=== PATIENT | male | born 1945 | race Caucasian/White ===

== ENCOUNTER 2020-02-03 11:27 | Emergency (ER) | payer OTHER, MEDICARE, SELFPAY ==
[2020-02-03 11:28] VITALS: BP 158/85; PULSE 62; RESP 18; TEMP 35.8; O2SAT 97; BMI 29.6
--- NOTE | 2020-02-03 11:56 | CT_ITS ---
STUDY: CT ABDOMEN AND PELVIS WITH CONTRAST REASON FOR EXAM: Male, 74 years old. DIFFUSE ABD PAIN X3 DAYS RADIATION DOSAGE (If Supplied By Facility): CTDIvol = ( 16.92 ) mGy, DLP = ( 1027.57 ) mGycm TECHNIQUE: Transaxial images were obtained from the dome of the diaphragm to the symphysis pubis with oral contrast. Oral and amp; IV Gastrografin and amp; 100mL Isovue-300 was administered. Sagittal and coronal images were reconstructed. Individualized dose optimization techniques were used for this CT. COMPARISON: None. FINDINGS: The visualized lung bases are unremarkable. The visualized portions of the heart are within normal limits. Normal liver. Normal gallbladder and extrahepatic biliary system. Normal spleen. Normal pancreas. Normal bilateral adrenal glands. Normal right kidney. Normal left kidney. Diffuse nonspecific increased markings in the root of the mesentery. There is a small hiatal hernia. Normal small intestine. There are multiple colonic diverticula consistent with diverticulosis. The appendix is visualized and appears normal. There is diffuse atherosclerotic calcification of the abdominal aorta, without a demonstrated aneurysm. Normal inferior vena cava. There is borderline retroperitoneal lymphadenopathy with enlarged nodes no greater than 10mm in the short axis diameter. Normal urinary bladder. There is enlargement of the prostate gland. This causes indentation at the bladder base. It measures 4.3 cm x 4.7 cm. Central prostatic calcifications are seen. There is a small umbilical hernia containing fat. Small bilateral inguinal hernias containing fat. There are diffuse degenerative changes of the visualized lumbar spine. Straightening of the normal lumbar lordosis. CT/Abdomen/Pelvis WITH Contrast IMPRESSION: Nonspecific increased markings in the root of the mesenteric fat. Prostatic enlargement with indentation at the bladder base. Scattered sigmoid diverticula. Electronically Signed: William Santizo, at 14:15 EST , Service support ,
--- NOTE | 2020-02-03 11:57 | ED.DCSUM_ITS ---
History of Present Illness Chief Complaint: Abd Pain Informant: Patient Narrative: 74-year-old male presents to the emergency department for the evaluation abdominal pain. Symptoms began Saturday evening. Describes it as a generalized ache but becomes more localized when he arches his back and then he can feel it more on the right and left sides of his abdomen. He denies really any other symptoms. He has had a ventral hernia which he states has been present for years. It is reducible. He has been eating and drinking normally. No fevers. He is never had any prior abdominal surgeries. He states that he has had a backache for months. He states he is followed for a abdominal aortic aneurysm but believes the size is only 2 cm. Past Medical History - Allergies and Home Meds Allergies/Adverse Reactions: Allergies acetaminophen [From Wygesic] Allergy (Verified 02/03/20 11:30) Unknown propoxyphene HCl [From Wygesic] Allergy (Verified 02/03/20 11:30) Unknown Primary Care Physician: [facility] [Primary Care Provider] - As Needed Past Medical History: - - AAA Surgical History: noncontributory Smoking Status: Former smoker Drugs: None Review of Systems General: Denies: Chills, Fever, Sweats Eyes: Denies: Visual changes - bilaterally, Diplopia ENT: Denies: Rhinorrhea, Sore throat Cardiovascular: Denies: Chest pain, Palpitations Respiratory: Denies: Dyspnea, Cough, Dyspnea on exertion Gastrointestinal: Reports: Abdominal pain. Denies: Nausea, Vomiting, Diarrhea, Melena, Hematochezia Genitourinary: Denies: Dysuria, Hematuria, Frequency Musculoskeletal: Denies: Back pain, Extremity Pain Skin: Denies: Rash, Wounds Neurological: Denies: Headache, Weakness, Numbness Physical Exam Vital Signs/Narrative: Vital Signs Temp Pulse Resp BP Pulse Ox 02/03/20 11:28 96.5 F L 62 18 158/85 H 97 Inital Vital Signs reviewed: Yes General: Well nourished, Well developed, No Acute Distress Head: Normocephalic, Atraumatic Eyes: Perrl, EOMI ENT: Moist mucous membranes, No rhinorrhea Neck: Supple, Nontender Cardiovascular: Regular rate, Regular rhythm, No murmurs Respiratory: No distress, CTA bilaterally, Chest nontender Abdomen: Soft, Nontender, Nondistended, Normal bowel sounds, Ventral hernia, Hernia irreducible Back: Nontender, Normal Inspection Extremities: Nontender, No edema Skin: Normal color, No rash Neurological: Alert, Oriented x3, Cranial nerves II-XII grossly intact, Normal Strength, Normal Sensation Psychological: Normal affect, Normal Mood Diagnostic/Tx/Re-eval Clinical Impression(s) from Imaging Studies Abdomen/Pelvis CT 02/03/20 11:56 IMPRESSION: Nonspecific increased markings in the root of the mesenteric fat. Prostatic enlargement with indentation at the bladder base. Scattered sigmoid diverticula. Electronically Signed: William Sukhdev, at 14:15 EST , Service support , Laboratory Last Values WBC 9.2 K/mm3 (4.4-11.0) 02/03/20 12:00 RBC 4.64 M/mm3 (4.6-6.2) 02/03/20 12:00 Hgb 14.1 g/dL (13.0-16.5) 02/03/20 12:00 Hct 41.5 % (40-54) 02/03/20 12:00 MCV 89.4 fL (80-94) 02/03/20 12:00 MCH 30.4 pg (27.0-32.0) 02/03/20 12:00 MCHC 34.0 g/dL (32-36) 02/03/20 12:00 RDW Std Deviation 41.7 fl (35.1-43.9) 02/03/20 12:00 RDW Coeff of Maira 12.8 % (11.6-14.6) 02/03/20 12:00 Plt Count 269 K/mm3 (150-450) 02/03/20 12:00 MPV 10.7 fl (6.2-12.0) 02/03/20 12:00 Immature Gran % (Auto) 0.400 % (0.0-0.9) 02/03/20 12:00 Neut % (Auto) 60.4 % (47-70) 02/03/20 12:00 Lymph % (Auto) 28.2 % (19-41) 02/03/20 12:00 [place] % (Auto) 9.8 % (0-10) 02/03/20 12:00 Eos % (Auto) 0.8 % (0-5) 02/03/20 12:00 Baso % (Auto) 0.4 % (0-1) 02/03/20 12:00 Absolute Neuts (auto) 5.6 X10^3/uL (2.0-7.7) 02/03/20 12:00 Absolute Lymphs (auto) 2.60 X10^3/uL (0.83-4.51) 02/03/20 12:00 Nucleated RBC % 0 % (0-5) 02/03/20 12:00 Sodium 139 mmol/L (136-145) 02/03/20 12:00 Potassium 3.9 mmol/L (3.5-5.1) 02/03/20 12:00 Chloride 106 mmol/L (98-107) 02/03/20 12:00 Carbon Dioxide 30.0 mmol/L (21.0-32.0) 02/03/20 12:00 Anion Gap 3 (5-15) L 02/03/20 12:00 BUN 21 mg/dL (7-18) H 02/03/20 12:00 Creatinine 1.43 mg/dL (0.70-1.30) H 02/03/20 12:00 Estim Creat Clear Calc 45.17 ml/min 02/03/20 12:00 Est GFR (MDRD) Af Amer 63 mL/min (>60) 02/03/20 12:00 Est GFR (MDRD) Non-Af 52 mL/min (>60) L 02/03/20 12:00 BUN/Creatinine Ratio 14.7 RATIO (10-20) 02/03/20 12:00 Glucose 83 mg/dL (74-106) 02/03/20 12:00 Calcium 8.8 mg/dL (8.5-10.1) 02/03/20 12:00 Total Bilirubin 0.70 mg/dL (0.20-1.00) 02/03/20 12:00 AST 10 U/L (15-37) L 02/03/20 12:00 ALT 20 U/L (16-61) 02/03/20 12:00 Alkaline Phosphatase 67 U/L (45-117) 02/03/20 12:00 Total Protein 7.1 g/dL (6.4-8.2) 02/03/20 12:00 Albumin 3.6 g/dL (3.2-5.0) 02/03/20 12:00 Globulin 3.5 g/dL (2.2-4.2) 02/03/20 12:00 Albumin/Globulin Ratio 1.0 RATIO (0.9-2.4) 02/03/20 12:00 Lipase 126 U/L (73-393) 02/03/20 12:00 Urine Color Yellow (Yellow) 02/03/20 13:05 Urine Clarity Sl. Cloudy (Clear) 02/03/20 13:05 Urine pH 6.5 (5.0 - 8.0) 02/03/20 13:05 Ur Specific [place] 1.010 (1.002-1.030) 02/03/20 13:05 Urine Protein Negative mg/dl (Negative) 02/03/20 13:05 Urine Glucose (UA) Normal mg/dl (Normal) 02/03/20 13:05 Urine Ketones Negative mg/dl (Negative) 02/03/20 13:05 Urine Occult Blood Negative /ul (Negative) 02/03/20 13:05 Urine Nitrite Negative (Negative) 02/03/20 13:05 Urine Bilirubin Negative mg/dL (Negative) 02/03/20 13:05 Urine Urobilinogen Normal mg/dl (Normal) 02/03/20 13:05 Ur Leukocyte Esterase Negative /ul (Negative) 02/03/20 13:05 Urine RBC 0 SEEN /hpf (0-5) 02/03/20 13:05 Urine WBC 0 SEEN /hpf (0-5) 02/03/20 13:05 Ur Squamous Epith Cells 0-5 SEEN /hpf (0-5) 02/03/20 13:05 Urine Bacteria 0 SEEN /hpf (None Seen) 02/03/20 13:05 Urine Mucus 0 SEEN /hpf (<or=2+) 02/03/20 13:05 - Medical Decision Making The ED work-up does not demonstrate anything acute. Patient now recounts that on Saturday after going a significant period of time without working out he did sit ups and push-ups. He wonders if his sides hurt because of that. I think that that is a very good likelihood given the negative work-up. Plan is to have the patient discharged home and follow-up with primary care return if worsening or concerns ED Disposition - Plan for ED Patient: Disposition: Home or Assisted Living Diagnosis: Acute abdominal pain Instructions: ED Unknown Causes of Abdominal ... [facility] [[facility] - As Needed
[2020-02-03 12:26] LABS: Absolute Neutrophil Count 5.6 X10^3/uL (2.0-7.7); Basophil# 0.04 X10^3/uL; Basophil% 0.4 % (0-1); Eosinophil# 0.07 X10^3/uL; Eosinophils% 0.8 % (0-5); Hematocrit 41.5 % (40-54); Hemoglobin 14.1 g/dL (13.0-16.5); Lymphocyte % 28.2 % (19-41); Mean Corpuscular Hgb 30.4 pg (27.0-32.0); Mean Corpuscular Volume 89.4 fL (80-94); Mean Platelet Vol. 10.7 fl (6.2-12.0); Monocyte% 9.8 % (0-10); NRBC Flagged by Analyzer 0 % (0-5); Neutrophil # 5.57 X10^3/uL (2.7-7.7); Neutrophil % 60.4 % (47-70); Platelet Count 269 K/mm3 (150-450); RBC Distribution Width CV 12.8 % (11.6-14.6); RBC Distribution Width SD 41.7 fl (35.1-43.9); Red Blood Count 4.64 M/mm3 (4.6-6.2); White Blood Count 9.2 K/mm3 (4.4-11.0)
[2020-02-03 12:36] LABS: AST(SGOT) 10 U/L (15-37); Alanine Aminotransfer ALT/SGPT 20 U/L (16-61); Albumin, Serum 3.6 g/dL (3.2-5.0); Alkaline Phosphatase 67 U/L (45-117); Anion Gap 3 (5-15); BUN 21 mg/dL (7-18); BUN/Creat Ratio 14.7 RATIO (10-20); Calcium,Total 8.8 mg/dL (8.5-10.1); Chloride 106 mmol/L (98-107); Creatinine, Serum 1.43 mg/dL (0.70-1.30); EST Glomerular Filtration Rate 52 mL/min (>60); Est Glom Filt Rate - Afr Amer 63 mL/min (>60); Estimated Creatinine Clearance 45.17 ml/min; Globulin 3.5 g/dL (2.2-4.2); Glucose 83 mg/dL (74-106); Lipase 126 U/L (73-393); Potassium 3.9 mmol/L (3.5-5.1); Protein, Total 7.1 g/dL (6.4-8.2); Sodium Level 139 mmol/L (136-145)
[2020-02-03 13:15] LABS: Bacteria 0 SEEN /hpf (None Seen); Mucous, Urine 0 SEEN /hpf (<or=2+); Red Blood Cells-Urine 0 SEEN /hpf (0-5); White Blood Cells 0 SEEN /hpf (0-5)
[2020-02-03 13:24] LABS: Color, Urine Yellow (Yellow); Glucose, Dipstick Normal (Normal); Ketone-Dipstick Negative (Negative); Leukocyte Esterase-Dipstick Negative /ul (Negative); Nitrite-Dipstick Negative (Negative); Occult Blood-Urine Negative /ul (Negative); Protein-Dipstick Negative (Negative); Urine Bilirubin Dipstick Negative (Negative); Urine Clarity Sl. Cloudy (Clear); Urine Urobilinogen Normal (Normal); Urine pH 6.5 (5.0 - 8.0)
[2020-02-03 13:37] LABS: Squamous Epithelial Cells - UA 0-5 SEEN /hpf (0-5)
[2020-02-03 14:49] VITALS: BP 142/79; PULSE 53; RESP 17
--- NOTE | 2020-02-03 14:49 | ED.RN ---
IV DC'ED, CATHETER INTACT, SMALL GAUZE DRESSING PLACED. DISCHARGE INSTRUCTIONS GIVEN TO AND REVIEWED WITH PATIENT, PATIENT DENIES QUESTIONS OR CONCERNS AND VOICES UNDERSTANDING OF DISCHARGE INSTRUCTIONS. PT AMBULATES OUT OF ROOM WITHOUT DIFFICULTY.
== END 2020-02-03 14:57 | disposition home or self-care (01) ==
PROVIDERS: Emergency Provider Emergency Medicine
DX: R10.9 Unspecified abdominal pain (principal); Z87.891 Personal history of nicotine dependence
CPT/HCPCS: 74177; 80053; 81001; 83690; 85025; 99283; Q9967; A4216

== ENCOUNTER → 2023-08-06 | Outpatient (CLI) | payer OTHER, SELFPAY ==
[2023-08-06 09:06] LABS: Hematocrit 41.1 % (40-54); Hemoglobin 13.8 g/dL (13.0-16.5); Mean Corp Hgb Conc 33.6 g/dL (32-36); Mean Corpuscular Hgb 30.7 pg (27.0-32.0); Mean Corpuscular Volume 91.3 fL (80-94); Mean Platelet Vol. 10.1 fl (6.2-12.0); Platelet Count 242 K/mm3 (150-450); RBC Distribution Width CV 13.1 % (11.6-14.6); RBC Distribution Width SD 43.9 fl (35.1-43.9); White Blood Count 10.2 K/mm3 (4.4-11.0)
== END | disposition home or self-care (01) ==
LOC: LAB 08:46
DX: C85.90 Non-Hodgkin lymphoma, unspecified, unspecified site (principal)
CPT/HCPCS: 36415; 85027

== ENCOUNTER 2024-02-05 08:10 | Emergency (ER) | payer OTHER, SELFPAY ==
[2024-02-05 08:11] VITALS: BP 148/67; PULSE 73; RESP 18; TEMP 36.9; O2SAT 99; BMI 28.8
--- NOTE | 2024-02-05 08:14 | EX.ED.UPPERE ---
HPI History of Present Illness Chief Complaint: Upper Extremity Injury [facility] Home Medications ?Medication ?Instructions ?Recorded ?Last Taken ?Type amlodipine 10 mg tablet 10 mg PO DAILY 02/03/20 Unknown History budesonide-formoterol HFA 160 1 puff inhalation DAILY 02/03/20 Unknown History mcg-4.5 mcg/actuation aerosol inhaler hydrochlorothiazide 12.5 mg capsule 12.5 mg PO DAILY 02/03/20 Unknown History ibrutinib 140 mg tablet 140 mg PO TID 02/03/20 Unknown History losartan 100 mg tablet 100 mg PO DAILY 02/03/20 Unknown History omeprazole 20 mg capsule,delayed 20 mg PO BID 02/03/20 Unknown History release oxycodone 5 mg tablet 5 mg PO Q6H PRN pain 3 days #12 02/05/24 Unknown Rx tabs Allergy/AdvReac Type Severity Reaction Status Date / Time acetaminophen (From Wygesic) Allergy Unknown Verified 02/05/24 08:11 propoxyphene HCl (From Allergy Unknown Verified 02/05/24 08:11 Wygesic) Social History Smoking Status: Former smoker EXAM Physical Exam Const Vital Signs: 02/05/24 08:11 Temperature 98.4 F Temperature Source Temporal Pulse Rate 73 Respiratory Rate 18 Blood Pressure 148/67 H Blood Pressure Mean 94 Pulse Ox 99 Oxygen Delivery Method Room Air [facility] [place] Narrative Medical decision making narrative: HISTORY OF PRESENT ILLNESS: 78-year-old male presents with left shoulder pain. Notes 2 weeks of pain. Notes it was worse last night. Notes difficulty sleeping. Notes pain radiated from the left shoulder into the neck last night. Denies falls or other trauma. Denies history of left shoulder surgery. REVIEW OF SYSTEMS: Pertinent positives: Shoulder pain, neck pain Pertinent negatives: Numbness weakness loss of sensation PHYSICAL EXAM: Nursing triage notes reviewed, Vital signs reviewed Constitutional: please see mdm Neck: No stridor, no JVD, full neck ROM Lungs: Clear to auscultation, No wheezing or rales. No increased work of breathing, no conversational dyspnea, no accessory muscle use, no nasal flaring. No respiratory distress noted Heart: Regular rate and rhythm, No murmurs, No rubs and No gallops, 2+ distal pulses (radial, femoral, posterior tibial) in all extremities Extremities: No edema, TTP over left trapezius muscle, TTP over left cervical spine musculature, hypertonicity noted. Decreased range of motion of the left shoulder in flexion, internal rotation. Intact strength. No TTP noted over clavicle. No obvious step-off or deformity. Neuro: Intact 5/5 strength with ok sign (median), intact finger abduction (ulnar) intact wrist extension (radial n). Intact sensation in the radial, ulnar, and median nerve distributions. Intact active neurofunction Skin: No rash or lesion noted MEDICAL DECISION MAKING: Chief Complaint: Left shoulder pain External records reviewed: Reviewed prior imaging, allergies, vital signs, current medications Factors affecting care: hypertension, GERD, non-Hodgkin's lipoma, COPD Social determinants of health: none History obtained from others: none Consults: none MDM Narrative: The patient was initially hemodynamically stable, afebrile and nontoxic-appearing. Exam with some slight weakness in internal rotation and flexion of the left shoulder, hypertonicity and TTP over the left trapezius and cervical spine musculature. Likely musculoskeletal etiology. Obtain an x-ray to assure there is no bony injury or dislocation. I considered the following differential diagnosis: Shoulder fracture, dislocation, rotator cuff strain, pathologic fracture I obtained an x-ray to further elucidate etiology the patient's complaints. ALL IMAGES (IF OBTAINED) HAVE BEEN PERSONALLY REVIEWED AND INTERPRETED BY MYSELF. X-ray of left shoulder was read and reviewed by myself was negative for fracture dislocation. The patient is likely some from musculoskeletal strain of his rotator cuff. Encouraged increased range of motion. Encouraged I Profen and Tylenol. Gave short course of narcotic pain medicine for breakthrough pain. The patient and/or family, caregivers express understanding. The patient and/or family, caregivers agrees with the plan. Shared decision making: I will have a discussion with the patient and or visitors regarding risk/benefits of further testing or admission. They will be made aware of of the risk/benefits inherent in this decision they will be given the opportunity to voice understanding. Total critical care time today provided was at least 0 minutes. This excludes separately billable procedures. Critical care time (if documented) is secondary to the patient having high probability of clinically significant/life threatening deterioration in the patient's condition which required my urgent intervention. Impression: 1. Left shoulder strain 2. Left rotator cuff strain Dispo: Discharge home This note was generated with Dragon dictation software. It may contain incorrect words, spelling, and punctuation that were not noted in review of the chart prior to signing. Discharge Plan Triage Chief Complaint: Upper Extremity Injury ED Provider: Jed Kumar Dx/Rx/DC Orders Instructions: Shoulder Flexibility, ED Shoulder Sprain Prescriptions: New oxycodone 5 mg tablet 5 mg PO Q6H PRN (Reason: pain) 3 Days Qty: 12 0RF No Action amlodipine 10 MG tablet 10 mg PO DAILY hydrochlorothiazide 12.5 MG capsule 12.5 mg PO DAILY omeprazole 20 MG capsule,delayed release(DR/EC) 20 mg PO BID losartan 100 MG tablet 100 mg PO DAILY budesonide-formoterol 1 INHALER inhaler 1 puff INHALATION DAILY ibrutinib 140 MG tablet 140 mg PO TID [facility] Provider[facility] Referrals: Florentin Salinas DO [Med Staff - Active Staff] - Activity Restrictions/Additional Instructions: Thank you for trusting us with your care today! Your x-ray was reassuring. It did not show signs of broken bones or dislocated joints. You are likely suffering from a rotator cuff injury. This is treated with rest, progressive range of motion and strengthening exercises. Please take Tylenol (2 pills, 650 mg), ibuprofen (2 pills, 400 mg) every 6 hours as needed for pain and fever control. Please take oxycodone for breakthrough pain if the above regimen does not control your pain. Oxycodone can cause constipation. Please increase your fiber intake while on oxycodone. I recommend eating fiber 1 cereal. Please return to the emergency department if your symptoms change or worsen. Please follow with your primary care physician for further outpatient evaluation and management. Print Language: Chinese Disposition Disposition: Home, Self Care
[2024-02-05] MEDS: Ibuprofen 200 MG Tablet PO (08:35)
--- NOTE | 2024-02-05 08:40 | RAD_ITS ---
STUDY: X-RAY - LEFT SHOULDER REASON FOR EXAM: Male, 78 years old. Nontraumatic left shoulder pain. TECHNIQUE: 4 view(s) of the shoulder. COMPARISON: None. FINDINGS: Normal glenohumeral articulation. There is degenerative arthrosis of the acromioclavicular joint without inferior osseous spur formation. Normal acromion. Normal humeral head and visualized proximal humerus. The soft tissue structures are unremarkable. Normal visualized pulmonary apex. RAD/Shoulder min 2 Views IMPRESSION: Degenerative changes of the acromioclavicular joint. Electronically Signed: William Santizo MD at 9:00 EST ,
== END 2024-02-05 09:27 | disposition home or self-care (01) ==
PROVIDERS: Emergency Provider Emergency Medicine; Visit Provider Emergency Medicine
DX: S46.012A Strain of muscle(s) and tendon(s) of the rotator cuff of left shoulder, initial encounter (principal); J44.9 Chronic obstructive pulmonary disease, unspecified; X58.XXXA Exposure to other specified factors, initial encounter; I10 Essential (primary) hypertension; K21.9 Gastro-esophageal reflux disease without esophagitis; Z85.72 Personal history of non-Hodgkin lymphomas; Z79.899 Other long term (current) drug therapy; Z87.891 Personal history of nicotine dependence; Z79.51 Long term (current) use of inhaled steroids
CPT/HCPCS: 73030; 99282

== ENCOUNTER 2024-02-06 04:49 | Emergency (ER) | payer OTHER, SELFPAY ==
[2024-02-06 04:49] VITALS: BP 177/72; PULSE 64; RESP 17; TEMP 37.1; O2SAT 98; BMI 29.7
[2024-02-06 05:21] VITALS: BP 162/76; PULSE 74; RESP 16; TEMP 36.7; O2SAT 99
--- NOTE | 2024-02-06 05:27 | EX.ED.UPPERE ---
HPI History of Present Illness Chief Complaint: Upper Extremity Injury Informant: patient Narrative Narrative: 78-year-old male presenting with left anterior shoulder pain hurts worse to move in certain ways. Started 2 weeks ago, gradually the day after he was doing some weight lifting. He states that 2 separate days that week, he was using a straight bar and doing curls with it, 3 sets each, 2 separate days and this started the day after the second day. It has been waxing and waning ever since. Denies any numbness or tingling. No associated chest symptoms. He was seen here yesterday, had x-rays and was given oxycodone. He took 1 of those recently and it seemed to help but he said that the pain was excessively severe tonight. No new symptoms since yesterday. [facility] Medical History (Updated 02/06/24 @ 05:[address] Jakub Yu MD) GERD (gastroesophageal reflux disease) Hypertension Home Medications ?Medication ?Instructions ?Recorded ?Last Taken ?Type amlodipine 10 mg tablet 10 mg PO DAILY 02/03/20 Unknown History budesonide-formoterol HFA 160 1 puff inhalation DAILY 02/03/20 Unknown History mcg-4.5 mcg/actuation aerosol inhaler hydrochlorothiazide 12.5 mg capsule 12.5 mg PO DAILY 02/03/20 Unknown History ibrutinib 140 mg tablet 140 mg PO TID 02/03/20 Unknown History losartan 100 mg tablet 100 mg PO DAILY 02/03/20 Unknown History omeprazole 20 mg capsule,delayed 20 mg PO BID 02/03/20 Unknown History release oxycodone 5 mg tablet 5 mg PO Q6H PRN pain 3 days #12 02/05/24 Unknown Rx tabs Allergy/AdvReac Type Severity Reaction Status Date / Time acetaminophen (From Wygesic) Allergy Unknown Verified 02/06/24 04:49 propoxyphene HCl (From Allergy Unknown Verified 02/06/24 04:49 Wygesic) Social History Smoking Status: Former smoker ROS ROS ED Constitutional Constitutional ED: Denies chills or fever(s) Musculoskeletal Musculoskeletal: Reports extremity pain; Denies neck pain Integumentary Denies Abrasions, rash or wounds Neurologic Neurologic: Denies paresthesias or weakness EXAM Physical Exam Const Vital Signs: 02/06/24 04:49 02/06/24 05:21 Temperature 98.7 F 98.1 F Temperature Source Oral Pulse Rate 64 74 Respiratory Rate 17 16 Blood Pressure 177/72 H 162/76 H Blood Pressure Mean 107 104 Pulse Ox 98 99 Oxygen Delivery Method Room Air Positive well nourished and well developed General Appearance ED: well developed and NAD Neck full ROM and supple Back/Spine normal ROM and normal to inspection Extremity normal to inspection Extremity Narrative: Nontender acromioclavicular joint, subacromial fossa, no deformities of the left shoulder. He has a positive Speed test and a positive Yergason test, all while being tender at the proximal biceps tendon anterior left shoulder, reproducing his pain. He can abduct with a lot less discomfort. Neuro oriented x3, no focal motor deficits and no sensory deficits noted Sensorium / Orientation: alert Psych mental status grossly normal and thought process normal Skin no wounds Rashes: no rashes MDM MDM MDM Narrative Medical decision making narrative: I reviewed the patient's ED visit from yesterday and I do not think he needs repeat emergent imaging. The patient drove himself and it is 5 AM. I could offer him other pain medication however I am not able to give him a narcotic before he drives home and he already has oxycodone at home. We discussed NSAIDs he is already taken a couple doses, I would not recommend more at this time. He is wanting to know if I can do an injection of his left shoulder unfortunately that is not something I am experienced in doing with regards to injecting the biceps tendon and I recommend him following up with orthopedics as that may be indicated for him. In the meantime and given him a sling and I showed him some stretches that he could do that may help him. Discharge Plan Triage Chief Complaint: Upper Extremity Injury ED Provider: Jakub Yu Dx/Rx/DC Orders Clinical Impression: Biceps tendinitis on left Instructions: Biceps Tendonitis, ED Sling Prescriptions: No Action amlodipine 10 MG tablet 10 mg PO DAILY hydrochlorothiazide 12.5 MG capsule 12.5 mg PO DAILY omeprazole 20 MG capsule,delayed release(DR/EC) 20 mg PO BID losartan 100 MG tablet 100 mg PO DAILY budesonide-formoterol 1 INHALER inhaler 1 puff INHALATION DAILY ibrutinib 140 MG tablet 140 mg PO TID oxycodone 5 mg tablet 5 mg PO Q6H PRN (Reason: pain) 3 Days Qty: 12 0RF [facility] Referrals: Florentin Salinas DO [Med Staff - Active Staff] - [facility] [Primary Care Provider] - Print Language: Zambian Disposition Disposition: Home, Self Care
== END 2024-02-06 05:31 | disposition home or self-care (01) ==
PROVIDERS: Emergency Provider Emergency Medicine; Visit Provider Emergency Medicine
DX: M75.22 Bicipital tendinitis, left shoulder (principal); X50.0XXA Overexertion from strenuous movement or load, initial encounter; Y93.B9 Activity, other involving muscle strengthening exercises; I10 Essential (primary) hypertension; K21.9 Gastro-esophageal reflux disease without esophagitis; Z79.899 Other long term (current) drug therapy; Z87.891 Personal history of nicotine dependence
CPT/HCPCS: 99283

== ENCOUNTER 2024-05-04 12:09 | Emergency (ER) | payer OTHER, SELFPAY ==
[2024-05-04 12:11] VITALS: BP 190/71; PULSE 60; RESP 15; TEMP 36.4; O2SAT 100; BMI 28.0
[2024-05-04 12:39] VITALS: BP 129/73; BP 137/73; BP 140/66; PULSE 52; PULSE 54; PULSE 57
--- NOTE | 2024-05-04 12:40 | EKG12_ITS ---
Test Reason : DIZZY Blood Pressure : */* mmHG Vent. Rate : 52 BPM Atrial Rate : 52 BPM P-R Int : 180 ms QRS Dur : 100 ms QT Int : 418 ms P-R-T Axes : 43 -1 45 degrees QTcB Int : 388 ms Sinus bradycardia Low voltage QRS Borderline ECG When compared with ECG of 27-Oct-1998 14:30, No significant change was found Confirmed by JOVANA WALKER, FREDI ([id number]), associate editor RU DOUGLAS ([id number]) on 05/06/2024 12:57:40 PM Referred By: Confirmed By: FREDI WHALEY MD
[2024-05-04 12:59] LABS: Absolute Neutrophil Count 7.8 X10^3/uL (2.0-7.7); Basophil# 0.05 X10^3/uL; Basophil% 0.4 % (0-1); Eosinophil# 0.09 X10^3/uL; Eosinophils% 0.8 % (0-5); Hematocrit 40.5 % (40-54); Hemoglobin 13.8 g/dL (13.0-16.5); Lymphocyte % 22.1 % (19-41); Mean Corp Hgb Conc 34.1 g/dL (32-36); Mean Platelet Vol. 9.9 fl (6.2-12.0); Monocyte# 1.17 X10^3/uL; NRBC Flagged by Analyzer 0 % (0-5); Neutrophil % 66.4 % (47-70); Platelet Count 232 K/mm3 (150-450); RBC Distribution Width SD 43.3 fl (35.1-43.9); Red Blood Count 4.45 M/mm3 (4.6-6.2); White Blood Count 11.8 K/mm3 (4.4-11.0)
--- NOTE | 2024-05-04 13:25 | RAD_ITS ---
PROCEDURE: CHEST PA AND LATERAL (RADCXR), 05/04/2024 REASON FOR EXAM: NEAR SYNCOPE TECHNIQUE: PA and lateral views of the chest were obtained. COMPARISON: None FINDINGS: Heart: Unremarkable. Mediastinum: Mild atherosclerosis in the aortic arch Lungs/pleura: No focal consolidation. No effusion or visible pneumothorax. Suspected granuloma in the right lung base. Bones: Trace thoracolumbar levoscoliosis. Multilevel spondylosis. Lines and support devices: None. RAD/Chest PA and Lateral IMPRESSION: 1. No visible acute cardiopulmonary findings 2. Additional description as above. Reading Location: [id number]
--- NOTE | 2024-05-04 13:30 | ED.RN ---
Patient returned from radiology
[2024-05-04 14:02] LABS: Anion Gap 11 (5-15); BUN 25 mg/dL (4-19); BUN/Creat Ratio 16.8 RATIO (10-20); Calcium,Total 9.1 mg/dL (7.6-11.0); Carbon Dioxide 23.4 mmol/L (21.0-32.0); Chloride 105 mmol/L (98-108); Creatinine, Serum 1.46 mg/dL (0.70-1.20); EST Glomerular Filtration Rate 50 (>60); Estimated Creatinine Clearance 46.81 ml/min (50-250); Glucose 96 mg/dL (70-99); Potassium 4.2 mmol/L (3.3-5.1); Sodium Level 140 mmol/L (133-145)
[2024-05-04 14:10] VITALS: PULSE 62; RESP 14; O2SAT 96
[2024-05-04] MEDS: Meclizine HCl 25 MG Tablet PO (14:15)
[2024-05-04 14:27] LABS: Mucous, Urine 0 SEEN /hpf (<or=2+)
[2024-05-04 14:41] LABS: Glucose, Dipstick Normal (Normal); Ketone-Dipstick Negative (Negative); Leukocyte Esterase-Dipstick Negative /ul (Negative); Nitrite-Dipstick Negative (Negative); Occult Blood-Urine 10 /ul (Negative); Protein-Dipstick 15 mg/dl (Negative); Specific Gravity, Urine 1.005 (1.002-1.030); Urine Bilirubin Dipstick Negative (Negative); Urine Urobilinogen Normal (Normal)
[2024-05-04 14:52] LABS: Color, Urine Yellow (Yellow); Urine Clarity Clear (Clear)
[2024-05-04 14:59] LABS: Red Blood Cells-Urine 0 SEEN /hpf (0-5); White Blood Cells 0-5 SEEN /hpf (0-5)
[2024-05-04 15:00] LABS: Squamous Epithelial Cells - UA 10-25 SEEN /hpf (0-5)
[2024-05-04 15:01] LABS: Bacteria 4+ /hpf (None Seen); Uric Acid Crystals Ur 2+ /hpf (<or=1+)
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
[2024-05-04 15:57] VITALS: BP 190/71; PULSE 62; RESP 14; TEMP 36.4; O2SAT 96
== END 2024-05-04 15:58 | disposition home or self-care (01) ==
PROVIDERS: Emergency Provider Emergency Medicine; Visit Provider Emergency Medicine
DX: R42 Dizziness and giddiness (principal); C88.00 Waldenstrom macroglobulinemia not having achieved remission; R00.1 Bradycardia, unspecified; J02.9 Acute pharyngitis, unspecified; R09.81 Nasal congestion; I10 Essential (primary) hypertension; K21.9 Gastro-esophageal reflux disease without esophagitis; J45.909 Unspecified asthma, uncomplicated; Z79.51 Long term (current) use of inhaled steroids; Z79.899 Other long term (current) drug therapy; Z87.891 Personal history of nicotine dependence
CPT/HCPCS: 71046; 80048; 81001; 85025; 87631; 93005; 99284; A4216

== ENCOUNTER 2024-10-27 20:05 | Emergency (ER) | payer OTHER, SELFPAY ==
[2024-10-27 20:06] VITALS: BP 145/63; PULSE 65; RESP 16; TEMP 36.8; O2SAT 97; BMI 28.8
--- NOTE | 2024-10-27 20:28 | EDS_ITS ---
HPI History of Present Illness Chief Complaint: Wound Check PFS PFS Medical History GERD (gastroesophageal reflux disease) Hypertension Home Medications ?Medication ?Instructions ?Recorded ?Last Taken ?Type budesonide-formoterol HFA 160 1 puff inhalation DAILY 02/03/20 Unknown History mcg-4.5 mcg/actuation aerosol inhaler hydrochlorothiazide 12.5 mg capsule 12.5 mg PO DAILY 1 04/05/19 Unknown History ibrutinib 140 mg tablet 140 mg PO TID 02/03/20 Unkno wn History losartan 100 mg tablet 100 mg PO DAILY 02/03/20 Unk nown History omeprazole 20 mg capsule,delayed 20 mg PO BID 02/03/20 Unknown History release Allergy/AdvReac Type Severity Reaction Status Date / Time acetaminophen (From Wygesic) Allergy Unknown Verified 10/27/24 20:09 propoxyphene HCl (From Allergy Unknown Verified 10/27/24 20:09 Wygesic) Social History Smoking Status: Former smoker EXAM Physical Exam Const Vital Signs: 10/27/24 20:06 Temperature 98.3 F Temperature Source Oral Pulse Rate 65 Respiratory Rate 16 Blood Pressure 145/63 H Blood Pressure Mean 90 Pulse Ox 97 Oxygen Delivery Method Room Air [facility] Narrative Medical decision making narrative: HISTORY OF PRESENT ILLNESS: Chief complaint: Wound check 78-year-old male history of hypertension, GERD, REVIEW OF SYSTEMS: Pertinent positives: Wound Pertinent negatives: [] PHYSICAL EXAM: Nursing triage notes reviewed, Vital signs reviewed Constitutional: please see [facility] Extremities: No edema Neuro intact 5/5 strength with ok sign (median), intact finger abduction (ulnar) intact wrist extension (radial n). Intact sensation in the radial, ulnar, and median nerve distributions. Skin: [] MEDICAL DECISION MAKING: Chief Complaint: please see [facility] External records reviewed: Reviewed prior medical history Factors affecting care: GERD, hypertension Social determinants of health: none [] History obtained from others: none [] Consults: none [] [facility] Narrative: Patient was initially hemodynamically stable, afebrile. Exam [ I considered the following differential diagnosis: [] I obtained [] to further determine if the patient was suffering from a life- threatening etiology. [] ALL IMAGES (IF OBTAINED) HAVE BEEN PERSONALLY REVIEWED AND INTERPRETED BY MYSELF. [] The patient and/or family, caregivers express understanding. The patient and/or family, caregivers agrees with the plan. Shared decision making: I will have a discussion with the patient and or visitors regarding risk/benefits of further testing or admission. They will be made aware of of the risk/benefits inherent in this decision they will be given the opportunity to voice understanding. Total critical care time today provided was at least 0 [] minutes. This excludes separately billable procedures. Critical care time (if documented) is secondary to the patient having high probability of clinically significant/life threatening deterioration in the patient's condition which required my urgent intervention. Impression: 1. [] 2. [] [] Dispo: [] This note was generated with [employer] dictation software. It may contain incorrect words, spelling, and punctuation that were not noted in review of the chart prior to signing. Discharge Plan Triage Chief Complaint: Wound Check ED Provider: Jed Kumar Dx/Rx/DC Orders Prescriptions: No Action hydrochlorothiazide 12.5 MG capsule 12.5 mg PO DAILY omeprazole 20 MG capsule,delayed release(DR/EC) 20 mg PO BID losartan 100 MG tablet 100 mg PO DAILY budesonide-formoterol 1 INHALER inhaler 1 puff INHALATION DAILY ibrutinib 140 MG tablet 140 mg PO TID [facility] [facility] [facility] [Primary Care Provider] - Print Language: Slovak
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
[2024-10-27] MEDS: Smz/Tmp Ds Tablet 1 TABLET PO (20:44)
[2024-10-27 21:00] VITALS: BP 138/65; PULSE 64; RESP 18; TEMP 36.8; O2SAT 98
--- NOTE | 2024-10-28 11:14 | ED.RN ---
pt called stating that he was not given an atb for home. per dr villareal prescription for bactrim ds bid x 1 week #14 called to [facility] per pt request. pt called and informed that prescription called to [facility].
== END 2024-10-27 21:02 | disposition home or self-care (01) ==
LOC: ED 20:48
PROVIDERS: Emergency Provider Emergency Medicine; Visit Provider Emergency Medicine
DX: L03.114 Cellulitis of left upper limb (principal); K21.9 Gastro-esophageal reflux disease without esophagitis; I10 Essential (primary) hypertension; Z87.891 Personal history of nicotine dependence; Z85.9 Personal history of malignant neoplasm, unspecified
CPT/HCPCS: 99282

== ENCOUNTER 2024-12-17 20:24 | Emergency (ER) | payer OTHER, SELFPAY ==
[2024-12-17 20:24] VITALS: BP 126/95; PULSE 58; RESP 18; TEMP 36.7; O2SAT 99
[2024-12-17 21:06] VITALS: BMI 30.3
--- NOTE | 2024-12-17 21:26 | CT_ITS ---
PROCEDURE: CT/Brain/Head without Contrast
--- NOTE | 2024-12-17 21:27 | EKG12_ITS ---
Test Reason : DYSRHYTHMIA
--- NOTE | 2024-12-17 21:31 | EX.ED.DYSGE1 ---
HPI History of Present Illness Chief Complaint: Dizziness Informant: patient Onset/Context/Timing Onset: Days Context: Gradual Onset Timing: Intermittent Current Severity: Mild Maximum Severity: Mild Narrative Narrative: 79-year-old male history of vertigo, hypertension prior history of cancer and chemotherapy. States he has been having dizziness for about a week. At times it is room spinning. It was worse tonight. Denies any head injury. No headache. No blood thinners. No recent illness. Prior similar symptoms: Yes Recent Illness/Hospitalization: No PFSH PFSH Medical History GERD (gastroesophageal reflux disease) Hypertension Home Medications ?Medication ?Instructions ?Recorded ?Last Taken ?Type budesonide-formoterol HFA 160 1 puff inhalation DAILY 02/03/20 Unknown History mcg-4.5 mcg/actuation aerosol inhaler hydrochlorothiazide 12.5 mg capsule 12.5 mg PO DAILY 02/03/20 Unknown History ibrutinib 140 mg tablet 140 mg PO TID 02/03/20 Unknown History losartan 100 mg tablet 100 mg PO DAILY 02/03/20 Unknown History omeprazole 20 mg capsule,delayed 20 mg PO BID 02/03/20 Unknown History release meclizine 25 mg chewable tablet 25 mg PO TID PRN dizziness #15 tabs 12/18/24 Unknown Rx (Antivert) Allergy/AdvReac Type Severity Reaction Status Date / Time acetaminophen (From [facility]ges[facility]) Allergy Unknown Verified 12/17/24 20:26 propoxyphene HCl (From Allergy Unknown Verified 12/17/24 20:26 Wygesic) Social History Smoking Status: Former smoker ROS ROS ED ROS Narrative Dizziness. No recent illness. Constitutional Constitutional ED: Denies fever(s) Eyes Eyes: Denies blurry vision ENT ENT ED: Denies ear pain Cardiovascular Cardiovascular: Denies chest pain Respiratory/Chest Respiratory/Chest: Denies cough or dyspnea Gastrointestinal Gastrointestinal: Denies abdominal pain Genitourinary Genitourinary ED: Denies dysuria or hematuria Musculoskeletal Musculoskeletal: Denies arthralgias Integumentary Denies abscess Neurologic Neurologic: Denies headache(s), paresthesias or weakness Psychiatric Psychiatric: Denies anxiety Endocrine Endocrinology: Denies cold intolerance Hematologic/Lymphatic Hematologic/Lymphatic: Reports none Allergic/Immunologic Allergic/Immunologic ED: Denies mouth swelling, tongue swelling or urticaria EXAM Physical Exam Narrative Exam Narrative: Well-appearing 79-year-old male vital signs stable afebrile. No acute distress. Pulse ox 99% on room air no hypoxia. H EENT exam pupils round react light. Moist mutes members. Neck nontender no JVD. No facial droop. Normal speech. No trauma to his face or scalp. Back nontender. Lungs clear to auscultation bilaterally. Heart regular rhythm no murmur. Chest wall ribs nontender. Abdomen soft nontender. Moving all 4 extremities. Normal cane flume watchman strength. Normal dorsi plantarflexion. Neurologic exam normal. Awake alert. Answer questions following commands. Fingertip to nose within normal limits no drift of upper or lower extremities. Const Vital Signs: 12/17/24 20:24 12/17/24 22:00 12/17/24 22:30 Temperature 98.1 F Temperature Source Oral Pulse Rate 58 L 61 56 L Respiratory Rate 18 19 H 16 Blood Pressure 126/95 H 156/65 H 129/63 H Blood Pressure Mean 105 89 80 Pulse Ox 99 97 97 Oxygen Delivery Method Room Air 12/17/24 23:32 Temperature 98 F Temperature Source Pulse Rate 64 Respiratory Rate 16 Blood Pressure 146/72 H Blood Pressure Mean 96 Pulse Ox 97 Oxygen Delivery Method MDM MDM MDM Narrative Medical decision making narrative: 79-year-old male dizziness. Exam benign. Hallpike negative. Normal neurologic exam. CAT scan and labs will be obtained. Will be given 1 dose of Antivert. Repeat exam patient is doing well initially to the standing he was having dizziness. Then and improved he ambulated to the bathroom with a walker without difficulty. Repeat neurologic exam is unchanged and normal. We discussed his dizziness this may or may not be vertigo. I did offer him admission to the hospital he absolutely wants to go home. I explained to him that he would do additional testing and potentially an MRI to further evaluate his dizziness to make sure he has not had a small stroke. That is not evident on exam. Again patient does not want to be admitted. He wants to be treated at home with Antivert he knows to be done improving needs further testing and to return if this is not improving. He is comfortable with that plan. History & Record Review Discussion w/independent historian: Patient and Family Additional record(s) reviewed:: Prior outpatient record, Prior ED visit and Prior labs Lab Data Attestation: I reviewed the patient's lab results. Lab results narrative: CBC shows a white count of 13. H&H 1339. Platelets 258. Electrolytes show gap 9. BUN and creatinine [address] brain shows no acute abnormality. Read by the radiologist. Reviewed by me. Labs: Laboratory Results - last 24 hr 12/17/24 22:10 WBC 13.0 H RBC 4.41 L Hgb 13.6 Hct 39.9 L MCV 90.5 MCH 30.8 MCHC 34.1 RDW Std Deviation 43.7 RDW Coeff of Maira 13.2 Plt Count 258 MPV 9.8 Immature Gran % (Auto) 0.500 Neut % (Auto) 67.1 Lymph % (Auto) 22.5 Boyle % (Auto) 8.2 Eos % (Auto) 1.2 Baso % (Auto) 0.5 Absolute Neuts (auto) 8.7 H Absolute Lymphs (auto) 2.92 Nucleated RBC % 0 Sodium 137 Potassium 4.0 Chloride 103 Carbon Dioxide 24.1 Anion Gap 9 BUN 24 H Creatinine 1.65 H Estim Creat Clear Calc 40.96 L Est GFR (MDRD) Non-Af 43 L BUN/Creatinine Ratio 14.3 Glucose 139 H Calcium 8.9 Radiography Diagnostic Testing: Clinical Impression(s) from Imaging Studies Brain CT 12/17/24 21:26 IMPRESSION: No intracranial hemorrhage. No mass effect or midline shift. Reading Location: [facility] Rhythm Strip Rhythm Strip: Sinus bradycardia rate of 56. Rate: 56 Ectopy: None EKG Initial EKG: Attestation: I personally reviewed and interpreted this EKG as follows: Interpretation: No Acute Injury Pattern and Sinus Bradycardia Comments: Sinus bradycardia. Rate of 56 no acute signs of [place] or ischemia. Discharge Plan Triage Chief Complaint: Dizziness ED Provider: Nguyễn Jean-Baptiste Dx/Rx/DC Orders Clinical Impression: Dizziness, History of vertigo Instructions: ED Dizziness, Uncertain Cause Prescriptions: New meclizine [Antivert] 25 mg tablet,chewable 25 mg PO TID PRN (Reason: dizziness) Qty: 15 0RF No Action hydrochlorothiazide 12.5 MG capsule 12.5 mg PO DAILY omeprazole 20 MG capsule,delayed release(DR/EC) 20 mg PO BID losartan 100 MG tablet 100 mg PO DAILY budesonide-formoterol 1 INHALER inhaler 1 puff INHALATION DAILY ibrutinib 140 MG tablet 140 mg PO TID [facility] [Primary Care Provider, None] - 3-5 Days Activity Restrictions/Additional Instructions: The dizziness may or may not be vertigo. There is no obvious signs of stroke on your exam or your CAT scan but that is a possibility if this is not improving. Use the Antivert 1 pill up to 3 times a day as needed. If you are not improving you will need further evaluation and possibly an MRI of your brain. [facility] if not improving if you feel worse return to the emergency department. Print Language: Georgian Disposition Disposition: Home, Self Care
[2024-12-17 22:00] VITALS: BP 156/65; PULSE 61; RESP 19; O2SAT 97
[2024-12-17 22:25] LABS: Hematocrit 39.9 % (40-54); Hemoglobin 13.6 g/dL (13.0-16.5); Immature Granulocytes Count 0.060 X10^3/uL (0.0-0.0); Mean Corp Hgb Conc 34.1 g/dL (32-36); Mean Corpuscular Volume 90.5 fL (80-94); Mean Platelet Vol. 9.8 fl (6.2-12.0); NRBC Flagged by Analyzer 0 % (0-5); Platelet Count 258 K/mm3 (150-450); RBC Distribution Width CV 13.2 % (11.6-14.6); RBC Distribution Width SD 43.7 fl (35.1-43.9); Red Blood Count 4.41 M/mm3 (4.6-6.2); White Blood Count 13.0 K/mm3 (4.4-11.0)
[2024-12-17 22:30] VITALS: BP 129/63; PULSE 56; RESP 16; O2SAT 97
[2024-12-17 22:44] LABS: Anion Gap 9 (5-15); BUN 24 mg/dL (4-19); BUN/Creat Ratio 14.3 RATIO (10-20); Calcium,Total 8.9 mg/dL (7.6-11.0); Carbon Dioxide 24.1 mmol/L (21.0-32.0); Chloride 103 mmol/L (98-108); Estimated Creatinine Clearance 40.96 ml/min (50-250); Glucose 139 mg/dL (70-99); Potassium 4.0 mmol/L (3.3-5.1)
[2024-12-18] VITALS: PULSE 68; RESP 18; O2SAT 99
[2024-12-18 00:05] VITALS: BP 129/63; PULSE 63; RESP 18; TEMP 36.6; O2SAT 97
== END 2024-12-18 00:10 | disposition home or self-care (01) ==
PROVIDERS: Emergency Provider Emergency Medicine; Visit Provider Emergency Medicine
DX: R42 Dizziness and giddiness (principal); I10 Essential (primary) hypertension; Z79.899 Other long term (current) drug therapy; Z87.891 Personal history of nicotine dependence; Z92.21 Personal history of antineoplastic chemotherapy
CPT/HCPCS: 70450; 80048; 85025; 93005; 99285; A4216